=== PATIENT | female | born 1970 | race American Indian/Alaskan Native ===

== ENCOUNTER 2017-11-26 20:10 | Emergency (ER) | payer OTHER ==
[2017-11-26 20:28] VITALS: RESP 18
--- NOTE | 2017-11-26 21:00 | ED PDOC ---
Arrival/HPI - General Chief Complaint: Back Pain Time Seen by Provider: 11/26/17 20:25 Historian: Patient, Family - History of Present Illness Narrative History of Present Illness (Text): you were treated in the ED today for being accidentally hit in the back with a shopping cart and having your left knee/foot injured with pain and otherwise without any head injury/loss of consciousness/neck pain/nausea/vomiting/headache /dizziness/difficulty breathing/chest pain/abdomen pain/numbness/tingling/loss of limb function/pain with urination. 11/26/17 21:01 Time/Duration: 1 hour Past Medical History - Provider Review Nursing Documentation Reviewed: Yes - Travel History Have you recently traveled outside [place] w/in the past 3 mons?: No - Cardiac Hx Cardiac Disorders: No - Pulmonary Hx Respiratory Disorders: Yes Hx Asthma: Yes Other/Comment: Sarcoidosis - Neurological Hx Neurological Disorder: No - HEENT Hx HEENT Disorder: No - Renal Hx Renal Disorder: No - Endocrine/Metabolic Hx Endocrine Disorders: No - Hematological/Oncological Hx Blood Disorders: No - Integumentary Hx Dermatological Disorder: No - Musculoskeletal/Rheumatological Hx Musculoskeletal Disorders: No - Gastrointestinal Hx Gastrointestinal Disorders: No - Genitourinary/Gynecological Hx Genitourinary Disorders: No - Psychiatric Hx Psychophysiologic Disorder: No Hx Substance Use: No - Anesthesia Hx Anesthesia: No Family/Social History - Physician Review Nursing Documentation Reviewed: Yes Family/Social History: No Known Family HX Smoking Status: Never Smoked Hx Alcohol Use: No Hx Substance Use: No Allergies/Home Meds Allergies/Adverse Reactions: Allergies Penicillins Allergy (Verified 11/26/17 20:25) URTICARIA Review of Systems - Review of Systems Constitutional: Normal Eyes: Normal ENT: Normal Respiratory: Normal Cardiovascular: Normal Gastrointestinal: Normal Genitourinary Female: Normal Musculoskeletal: Back Pain Skin: Normal Neurological: Normal Endocrine: Normal Hemo/Lymphatic: Normal Psychiatric: Normal Physical Exam Vital Signs Reviewed: Yes Vital Signs Temp Pulse Resp BP Pulse Ox 11/27/17 00:20 98.2 F 67 18 153/82 H 100 11/26/17 20:25 98.6 F 65 18 148/92 H 98 Blood Pressure: Hypertensive Pulse: Regular Respiratory Rate: Normal Appearance: Positive for: Well-Appearing, Non-Toxic, Comfortable Pain Distress: None Mental Status: Positive for: Alert and Oriented X 3 - Systems Exam Head: Present: Atraumatic, Normocephalic Pupils: Present: PERRL Extroacular Muscles: Present: EOMI Conjunctiva: Present: Normal Ears: Present: Normal Mouth: Present: Moist Mucous Membranes Pharnyx: Present: Normal Nose (External): Present: Atraumatic Nose (Internal): Present: Normal Inspection Neck: Present: Normal Range of Motion, Other (no c-t spinal or paraspinal tenderness) Respiratory/Chest: Present: Clear to Auscultation, Good Air Exchange Abdomen: Present: Other (no pulsatile masses). No: Tenderness, Distention, Normal Bowel Sounds, Peritoneal Signs, Rebound, Guarding, McBurney's Point Tender, Rovsing's Sign Present, Hernias, Feeding Tubes, Ostomy Tubes, Mass/ Organomegaly, Scars Back: Present: Other (mild lumbar spinal/paraspinal discomfort) Upper Extremity: Present: Normal Inspection Lower Extremity: Present: Normal Inspection Neurological: Present: GCS=15, CN II-XII Intact, Speech Normal, Motor Func Grossly Intact Skin: Present: Warm, Normal Color Psychiatric: Present: Alert, Oriented x 3, Normal Insight, Normal Concentration Medical Decision Making ED Course and Treatment: you were treated in the ED today for being accidentally hit in the back with a shopping cart and having your left knee/foot injured with pain and otherwise without any head injury/loss of consciousness/neck pain/nausea/vomiting/headache /dizziness/difficulty breathing/chest pain/abdomen pain/numbness/tingling/loss of limb function/pain with urination. You were otherwise breathing easily, pink moist lips, smiling and talking with your [id number], good strength/sensation , alert/oriented, walking with difficulty due to bearing weight left lower leg, clear lungs, no abdomen tenderness, mild lower lumbar back pain but no other spinal or next to spine tenderness and without redness and otherwise mild left knee and foot pain without laxity/or any other bony tenderness and otherwise warm/sensation/pink with good pulses, no fever temp 98.6, stable heart rate 65, stable breathing rate 18, excellent oxygen level 98% room air, elevated blood pressure 148/92 which we recommend repeat in 2-3 days primary care office to determine further treatment, test negative, radiology ct lumbar spine no acute findings, left knee xray possible injury findings, left foot no acute findings, tylenol, observation, left knee immobilizer due to possible left knee injury findings for protection, left foot silvia wrap, crutches instruction done in the ED with improvement, counselled to rest left lower extremity, use crutches as directed and thus discharged home with [id number]. 1. Recommend tylenol as directed for mild pain. 2. Recommend nonweight bearing left lower extremity till first clinic visit. 3. Recommend follow-up primary care 2 days to review symptoms, get final xray reports, referral to orthopedics and spine clinic to review symptoms. 4. If any worsening pain, fever, chills, nausea, vomiting, difficulty breathing, numbness, loss of limb function, pain with urination or any medical condition then return to the ED. COMPARISON: No relevant prior studies available. FINDINGS: Vertebrae: Unremarkable. No acute fracture. No lytic or blastic lesions. Discs/spinal canal/neural foramina: No acute findings. No spinal canal stenosis. Soft tissues: Unremarkable. Stomach and bowel: Large amount of retained stool throughout colon. Diverticulosis. Reproductive: 2.8 CM left adnexal cyst. Tubes, lines and devices: Intrauterine device in place. IMPRESSION: 1. No lumbar spine fracture, or subluxation. 2. Remainder of findings as above. 11/27/17 00:22 11/27/17 00:22 Reassessment Condition: Re-examined, Improved - RAD Interpretation Radiology Orders: 11/26/17 20:42 LUMBAR SPINE W/O CONTRAST [CT] Stat 11/26/17 20:43 FOOT LEFT 3 VIEWS ROUTINE [RAD] Stat KNEE LEFT 2 VIEWS (AP & LAT) [RAD] Stat National Sales Trainer: Radiologist (see mdm) - Medication Orders Current Medication Orders: Discontinued Medications Acetaminophen (Tylenol 325mg Tab) 975 mg PO STAT STA Stop: 11/26/17 20:43 Last Admin: 11/26/17 21:26 Dose: 975 mg MAR Pain/Vitals Document 11/26/17 21:26 [email or web address] (Rec: 11/26/17 21:26 [id number]) Pain Reassessment Is This A Pain ReAssessment? No Sleep Is patient sleeping during reassessment? No Presence of Pain Presence of Pain Yes Pain Scale Used Pain Scale Used Numeric Location Pain Location Body Site Back Description Constant Intensity 7 Scale Used Numeric Pain Behavior Facial Grimacing Aggravating Factors Changing Position Alleviating Factors Medication Disposition/Present on Arrival - Present on Arrival Any Indicators Present on Arrival: No History of DVT/PE: No History of Uncontrolled Diabetes: No Urinary Catheter: No History of Decub. Ulcer: No History Surgical Site Infection Following: None - Disposition Have Diagnosis and Disposition been Completed?: Yes Diagnosis: Back pain, Knee pain, left Disposition: HOME/ ROUTINE Disposition Time: 00:19 Patient Plan: Discharge Patient Problems: Current Active Problems Problem Status Onset Back pain Acute Knee pain, left Acute Condition: IMPROVED Discharge Instructions (ExitCare): Knee Pain (DC) Additional Instructions: you were treated in the ED today for being accidentally hit in the back with a shopping cart and having your left knee/foot injured with pain and otherwise without any head injury/loss of consciousness/neck pain/nausea/vomiting/headache /dizziness/difficulty breathing/chest pain/abdomen pain/numbness/tingling/loss of limb function/pain with urination. You were otherwise breathing easily, pink moist lips, smiling and talking with your [id number], good strength/sensation , alert/oriented, walking with difficulty due to bearing weight left lower leg, clear lungs, no abdomen tenderness, mild lower lumbar back pain but no other spinal or next to spine tenderness and without redness and otherwise mild left knee and foot pain without laxity/or any other bony tenderness and otherwise warm/sensation/pink with good pulses, no fever temp 98.6, stable heart rate 65, stable breathing rate 18, excellent oxygen level 98% room air, elevated blood pressure 148/92 which we recommend repeat in 2-3 days primary care office to determine further treatment, test negative, radiology ct lumbar spine no acute findings, left knee xray possible injury findings, left foot no acute findings, tylenol, observation, left knee immobilizer due to possible left knee injury findings for protection, left foot silvia wrap, crutches instruction done in the ED with improvement, counselled to rest left lower extremity, use crutches as directed and thus discharged home with [id number]. 1. Recommend tylenol as directed for mild pain. 2. Recommend nonweight bearing left lower extremity till first clinic visit. 3. Recommend follow-up primary care 2 days to review symptoms, get final xray reports, referral to orthopedics and spine clinic to review symptoms. 4. If any worsening pain, fever, chills, nausea, vomiting, difficulty breathing, numbness, loss of limb function, pain with urination or any medical condition then return to the ED. Referrals: Ace Ordaz MD, PhD [Primary Care Provider] - Follow up with primary Forms: [facility] (Sudanese), WORK NOTE
--- NOTE | 2017-11-26 23:28 | CT ---
EXAM: CT Lumbar Spine Without Intravenous Contrast CLINICAL HISTORY: 47 years old, female; Injury or trauma; Fall; Initial encounter; Blunt trauma (contusions or hematomas); Additional info: 47yof, lumbar injury/pain TECHNIQUE: Axial computed tomography images of the lumbar spine without intravenous contrast. All CT scans at this facility use one or more dose reduction techniques, viz.: automated exposure control; ma/kV adjustment per patient size (including targeted exams where dose is matched to indication; i.e. head); or iterative reconstruction technique. Coronal and sagittal reformatted images were created and reviewed. COMPARISON: No relevant prior studies available. FINDINGS: Vertebrae: Unremarkable. No acute fracture. No lytic or blastic lesions. Discs/spinal canal/neural foramina: No acute findings. No spinal canal stenosis. Soft tissues: Unremarkable. Stomach and bowel: Large amount of retained stool throughout colon. Diverticulosis. Reproductive: 2.8 CM left adnexal cyst. Tubes, lines and devices: Intrauterine device in place. IMPRESSION: 1. No lumbar spine fracture, or subluxation. 2. Remainder of findings as above.
[2017-11-27 00:21] VITALS: BP 153/82; PULSE 67; TEMP 98.2; O2SAT 100
--- NOTE | 2017-11-27 11:46 | RAD ---
PROCEDURE: Left Foot Radiographs. HISTORY: 47yoF, left foot pain COMPARISON: None. FINDINGS: BONES: Normal. No fracture. JOINTS: Normal. SOFT TISSUES: Normal. OTHER FINDINGS: None. IMPRESSION: Normal left foot radiographs.
--- NOTE | 2017-11-27 11:47 | RAD ---
PROCEDURE: Left Knee Radiographs. HISTORY: Pain. COMPARISON: None. FINDINGS: BONES: Normal. No fracture. JOINTS: Mild tricompartmental osteoarthritis. There is mild medial subluxation of the femur on the tibia, of uncertain significance. No articular erosion appreciated. JOINT EFFUSION: None. OTHER FINDINGS: None. IMPRESSION: Mild tricompartmental osteoarthritis. Mild medial subluxation of the femur on the proximal tibia of uncertain significance.
== END 2017-11-27 00:44 | disposition home or self-care (01) ==
LOC: ED 20:10
DX: M54.5 Low back pain (principal); M25.562 Pain in left knee